=== PATIENT | male | born 1975 | race Caucasian/White ===

== ENCOUNTER 2025-03-07 23:54 | Emergency (ER) | payer SELFPAY ==
[2025-03-08] VITALS (11 sets, daily range): BP systolic 157–222; BP diastolic 100–133; PULSE 83–101; TEMP 36.5; O2SAT 97; BMI 26.4
--- NOTE | 2025-03-08 00:18 | ED.GENADUL1 ---
HPI HPI - General Adult General Chief complaint: Recheck/Abnormal Lab/Rx Stated complaint: hypertension Time Seen by Provider: 03/08/25 00:07 Source: patient Mode of arrival: walk-in Limitations: no limitations History of Present Illness HPI narrative: states history of HTN for many years that he has never treated. Drinks 6 beers Q.O.D. States working out in the sun today. [place] light headed and could feel his heart beating in his head. chest pain for years but now today. No dyspnea. Related Data Allergies Allergy/AdvReac Type Severity Reaction Status Date / Time Penicillins Allergy Unknown Unknown Verified 03/08/25 00:00 Review of Systems ROS Status of ROS 10 or more systems reviewed and unremarkable except as noted in history and below PFSH PFSH Social History Little interest or pleasure in doing things: not at all Feeling down, depressed, or hopeless: not at all Exam Constitutional Vital Signs, click to edit/add: Last Vital Signs Temp 97.7 F 03/08/25 00:00 Pulse 83 03/08/25 00:34 Resp 16 03/08/25 00:34 BP 159/120 H 03/08/25 02:30 Pulse Ox 97 03/08/25 00:00 O2 Del Method Room Air 03/08/25 00:00 Common normals: no apparent distress, average body habitus, oriented x3, no limitations, healthy appearing, alert and well nourished [facility] Common normals: normocephalic and head/scalp atraumatic Eye Common normals: PERRL and EOMs intact bilaterally Respiratory Common normals: normal respiratory effort, no retractions, no use of accessory muscles and clear to auscultation bilaterally Cardio Common normals: regular rate, regular rhythm, S1 normal heart sound and S2 normal heart sound GI Common normals: Normal to inspection, nondistended, normoactive bowel sounds present and soft to palpation Extremity Common normals: normal to inspection and full ROM Neuro Common normals: oriented x3, CN's II-XII intact bilaterally, moves all extremities and no focal motor deficits Psych Appearance: grossly normal Course Vital Signs Vital signs: Vital Signs Temperature 97.7 F 03/08/25 00:00 Pulse Rate 101 H 03/08/25 00:00 Respiratory Rate 15 03/08/25 00:00 Blood Pressure 222/133 H 03/08/25 00:00 Pulse Oximetry 97 03/08/25 00:00 Oxygen Delivery Method Room Air 03/08/25 00:00 Temperature 97.7 F 03/08/25 00:00 Pulse Rate 83 03/08/25 00:34 Respiratory Rate 16 03/08/25 00:34 Blood Pressure 159/120 H 03/08/25 02:30 Pulse Oximetry 97 03/08/25 00:00 Oxygen Delivery Method Room Air 03/08/25 00:00 Medical Decision Making MDM Narrative Medical decision making narrative: patient presents complaining of hypertension. States it has been high for years. States yesterday the top # was 240. States he has not had his BP treated because he was not able to get in to see a PCP.He also admits to drinking alcohol. States he may drink up to 6 beers every other day. States tonight he has a headache. Brought in by his friend. Denies chest pain or dyspnea. labs with mild elevation of LFTs Serial troponin neg and EKG normal. Patient given dose of hydralazine. BP decreased from 222/133 to 159/120. He is feeling better. 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 Also informed the alcohol intox can raise his BP also Lab Data Labs: Lab Results 03/08/25 03/08/25 Range/Units 00:30 02:04 WBC 9.1 (4.0-11.0) 10^3/uL RBC 4.96 (4.70-6.10) 10^6/uL Hgb 15.8 (14.0-18.0) g/dL Hct 46.4 (42.0-54.0) % MCV 93.5 (80.0-94.0) fL MCH 31.9 (25.9-34.0) pg MCHC 34.1 (29.9-35.2) g/dL RDW 11.9 (11.0-15.0) % Plt Count 241 (150-450) 10^3/uL MPV 10.8 (9.5-13.5) fL Neut % (Auto) 43.8 (43.0-75.0) % Lymph % (Auto) 38.3 (20.5-60.0) % Pierce % (Auto) 11.7 (1.7-12.0) % Eos % (Auto) 4.4 (0.9-7.0) % Baso % (Auto) 1.5 (0.2-2.0) % Neut # (Auto) 4.0 (1.4-6.5) 10^3/uL Lymph # (Auto) 3.5 (1.2-3.8) 10^3/uL Pierce # (Auto) 1.1 H (0.3-0.8) 10^3/uL Eos # (Auto) 0.4 (0.0-0.7) 10^3/uL Baso # (Auto) 0.1 (0.0-0.1) 10^3/uL Abs Immat Gran (auto) 0.03 (0.00-0.03) 10^3/uL Imm/Tot Granulo (auto) 0.3 (0.0-0.5) % Sodium 140 (136-145) mmol/L Potassium 3.3 L (3.5-5.1) mmol/L Chloride 103 (98-107) mmol/L Carbon Dioxide 26.4 (21.0-32.0) mmol/L Anion Gap 13.9 BUN 16.0 (7.0-18.0) mg/dL Creatinine 1.04 (0.70-1.30) mg/dL Est GFR ( Amer) >60 (>=60 mL/min/1.73m^2) Est GFR (Non-Af Amer) >60 (>=60 mL/min/1.73m^2) BUN/Creatinine Ratio 15.4 Glucose 92 (74-106) mg/dL Calcium 9.1 (8.5-10.1) mg/dL Total Bilirubin 0.4 (0.2-1.0) mg/dL AST 48 H (15-37) U/L ALT 125 H (16-63) U/L Alkaline Phosphatase 151 H (46-116) U/L Troponin I High Sens 7.4 8.2 (4.0-76.1) pg/mL Total Protein 7.9 (6.4-8.2) g/dL Albumin 4.1 (3.4-5.0) g/dL Globulin 3.8 g/dL Albumin/Globulin Ratio 1.1 Ethanol Quant 161 mg/dL Discharge Plan Discharge Chief Complaint: Recheck/Abnormal Lab/Rx Clinical Impression: Hypertensive urgency, Alcohol intoxication Patient Disposition: Home, Self-Care Mode of Transportation: Private Vehicle Print Language: Malay Instructions: Abuse of Alcohol (ED), Hypertensive Crisis (ED) Additional Instructions: call Dr Alcazar office sunday for follow up next week Referrals: Physician,Non-Staff, MD [Primary Care Provider] - 1 week
--- NOTE | 2025-03-08 00:23 | ECG_ITS ---
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 Measurements Intervals Benedict Rate: 83 P: 37 FL: 150 QRS: 4 QRSD: 84 T: 11 QT: 392 QTc: 432 Interpretive Statements 1100 Sinus rhythm 9110 normal ECG No previous ECG available for comparison Electronically Signed On 03-08-2025 12:45:24 EDT by MARYBETH CHO M.D.
[2025-03-08 00:39] LABS: Basophils Absolute Auto 0.1 10^3/uL (0.0-0.1); Basophils Percent Auto 1.5 % (0.2-2.0); Eosinophils Absolute Auto 0.4 10^3/uL (0.0-0.7); Eosinophils Percent Auto 4.4 % (0.9-7.0); Hematocrit 46.4 % (42.0-54.0); Hemoglobin 15.8 g/dL (14.0-18.0); Immature Granulocytes Abs Auto 0.03 10^3/uL (0.00-0.03); Immature Granulocytes Pct Auto 0.3 % (0.0-0.5); Lymphocytes Absolute Auto 3.5 10^3/uL (1.2-3.8); Lymphocytes Percent Auto 38.3 % (20.5-60.0); Mean Corpuscular HGB Conc 34.1 g/dL (29.9-35.2); Mean Corpuscular Hemoglobin 31.9 pg (25.9-34.0); Mean Corpuscular Volume 93.5 fL (80.0-94.0); Mean Platelet Volume 10.8 fL (9.5-13.5); Monocytes Absolute Auto 1.1 10^3/uL (0.3-0.8); Monocytes Percent Auto 11.7 % (1.7-12.0); Neutrophils Percent Auto 43.8 % (43.0-75.0); Platelet Count 241 10^3/uL (150-450); Red Blood Count 4.96 10^6/uL (4.70-6.10); Red Cell Distribution Width 11.9 % (11.0-15.0); White Blood Count 9.1 10^3/uL (4.0-11.0)
[2025-03-08] MEDS: HYDRALAZINE HCL 20 MG/ML VIAL 10 MG IVP (00:41)
[2025-03-08 00:55] LABS: Alanine Aminotransferase 125 U/L (16-63); Albumin Globulin Ratio 1.1; Albumin Level 4.1 g/dL (3.4-5.0); Alkaline Phosphatase 151 U/L (46-116); Anion Gap 13.9; Aspartate Amino Transferase 48 U/L (15-37); BUN Creatinine Ratio 15.4; Bilirubin Total 0.4 mg/dL (0.2-1.0); Calcium 9.1 mg/dL (8.5-10.1); Carbon Dioxide 26.4 mmol/L (21.0-32.0); Chloride 103 mmol/L (98-107); Estimated GFR (African America >60 (>=60 mL/min/1.73m^2); Estimated GFR (Non-African Ame >60 (>=60 mL/min/1.73m^2); Globulin 3.8 g/dL; Glucose 92 mg/dL (74-106); Potassium 3.3 mmol/L (3.5-5.1); Sodium 140 mmol/L (136-145); Total Protein 7.9 g/dL (6.4-8.2)
[2025-03-08 01:00] LABS: Ethanol 161 mg/dL; Troponin I High Sensitivity 7.4 pg/mL (4.0-76.1)
[2025-03-08 02:26] LABS: Troponin I High Sensitivity 8.2 pg/mL (4.0-76.1)
== END 2025-03-08 03:05 | disposition home or self-care (01) ==
PROVIDERS: Emergency Provider Internal Medicine; Family Provider Family Medicine
DX: I16.0 Hypertensive urgency (principal); I10 Essential (primary) hypertension; F10.129 Alcohol abuse with intoxication, unspecified; Y90.6 Blood alcohol level of 120-199 mg/100 ml
CPT/HCPCS: 36415; 80053; 80320; 84484; 85025; 93005; 96374; 99285; J0360